=== PATIENT | male | born 1970 | race Caucasian/White ===

== ENCOUNTER 2017-02-03 12:23 | Emergency (ER) | payer OTHER ==
[~2017-02-03] VITALS: Ht 177.8 cm; Wt 106.0 kg
--- NOTE | 2017-02-03 12:30 | NUR ---
see trauma nsrg notes- pt is a level 2 trauma activation
--- OUTSIDE RECORDS SUMMARY | 2017-02-03 12:32 | XMS REPORT | Continuity of Care Document ---
[facility] [place] [facility] Address Unknown Phone Unavailable Allergies Medications Problems Date Dx Coded Attending Type Code Diagnosis Diagnosed By 04/07/2015 KIKO MANRIQUE APRN 300.01 PANIC DISORDER WITHOUT AGORAPHOBIA 04/07/2015 KIKO MANRIQUE APRN 300.01 PANIC DISORDER WITHOUT AGORAPHOBIA 04/07/2015 KIKO MANRIQUE APRN F41.0 PANIC DISORDER WITHOUT AGORAPHOBIA 04/07/2015 RANGEL NAVARRO, REY F41.0 PANIC DISORDER [EPISODIC PAROXYSMAL ANXIETY] WITHOUT AGORAPHOBIA 04/07/2015 RANGEL NAVARRO, REY F41.0 PANIC DISORDER [EPISODIC PAROXYSMAL ANXIETY] WITHOUT AGORAPHOBIA 04/07/2015 RANGEL NAVARRO, REY F41.0 PANIC DISORDER [EPISODIC PAROXYSMAL ANXIETY] WITHOUT AGORAPHOBIA 04/08/2015 KIKO MANRIQUE APRN 300.00 anxiety 04/08/2015 KIKO MANRIQUE APRN 311 depression 04/08/2015 KIKO MANRIQUE APRN 780.52 insomnia 04/08/2015 KIKO MANRIQUE APRN V65.49 OTHER SPECIFIED COUNSELING 04/08/2015 KIKO MANRIQUE APRN 300.00 anxiety 04/08/2015 KIKO MANRIQUE APRN 311 depression 04/08/2015 KIKO MANRIQUE APRN 780.52 insomnia 04/08/2015 KIKO MANRIQUE APRN F32.9 MAJOR DEPRESSIVE DISORDER, SINGLE EPISODE, UNSPECIFIED 04/08/2015 KIKO MANRIQUE APRN F41.9 ANXIETY DISORDER, UNSPECIFIED 04/08/2015 KIKO MANRIQUE APRN G47.00 INSOMNIA, UNSPECIFIED 04/08/2015 KIKO MANRIQUE APRN V65.49 OTHER SPECIFIED COUNSELING 04/08/2015 KIKO MANRIQUE APRN Z71.89 OTHER SPECIFIED COUNSELING 04/08/2015 REY MULTANI MD F32.9 MAJOR DEPRESSIVE DISORDER, SINGLE EPISODE, UNSPECIFIED 04/08/2015 RANGEL NAVARRO, REY F41.9 ANXIETY DISORDER, UNSPECIFIED 04/08/2015 RANGEL NAVARRO, REY G47.00 INSOMNIA, UNSPECIFIED 04/08/2015 RANGEL NAVARRO, REY Z71.89 OTHER SPECIFIED COUNSELING 04/08/2015 RANGEL NAVARRO, REY F32.9 MAJOR DEPRESSIVE DISORDER, SINGLE EPISODE, UNSPECIFIED 04/08/2015 RANGEL NAVARRO, REY F41.9 ANXIETY DISORDER, UNSPECIFIED 04/08/2015 RANGEL NAVARRO, REY G47.00 INSOMNIA, UNSPECIFIED 04/08/2015 RANGEL NAVARRO, REY Z71.89 OTHER SPECIFIED COUNSELING 04/08/2015 RANGEL NAVARRO, REY F32.9 MAJOR DEPRESSIVE DISORDER, SINGLE EPISODE, UNSPECIFIED 04/08/2015 RANGEL NAVARRO, REY F41.9 ANXIETY DISORDER, UNSPECIFIED 04/08/2015 RANGEL NAVARRO, REY G47.00 INSOMNIA, UNSPECIFIED 04/08/2015 RANGEL NAVARRO, REY Z71.89 OTHER SPECIFIED COUNSELING 05/06/2015 KIKO MANRIQUE APRN 272.4 HYPERLIPIDEMIA 05/06/2015 KIKO MANRIQUE APRN 716.90 ARTHRITIS 05/06/2015 KIKO MANRIQUE APRN E78.5 HYPERLIPIDEMIA, UNSPECIFIED 05/06/2015 KIKO MANRIQUE APRN M12.9 ARTHROPATHY, UNSPECIFIED 05/06/2015 KIKO MANRIQUE APRN V15.82 former smoker 05/06/2015 KIKO MANRIQUE APRN V68.1 ISSUE OF REPEAT PRESCRIPTIONS 05/06/2015 KIKO MANRIQUE APRN V70.0 ROUTINE GENERAL MEDICAL EXAMINATION AT A HEALTH CARE FACILITY 05/06/2015 KIKO MANRIQUE APRN V77.0 SPECIAL SCREENING FOR THYROID DISORDERS 05/06/2015 KIKO MANRIQUE APRN V77.1 SCREENING FOR DIABETES MELLITUS 05/06/2015 KIKO MANRIQUE APRN V77.91 SCREENING FOR LIPOID DISORDERS 05/06/2015 KIKO MANRIQUE APRN Z00.00 ENCNTR FOR GENERAL ADULT MEDICAL EXAM W/O ABNORMAL FINDINGS 05/06/2015 KIKO MANRIQUE APRN Z13.1 ENCOUNTER FOR SCREENING FOR DIABETES MELLITUS 05/06/2015 KIKO MANRIQUE APRN Z13.220 ENCOUNTER FOR SCREENING FOR LIPOID DISORDERS 05/06/2015 KIKO MANRIQUE APRN Z13.29 ENCOUNTER FOR SCREENING FOR OTH SUSPECTED ENDOCRINE DISORDER 05/06/2015 KIKO MANRIQUE APRN Z76.0 ENCOUNTER FOR ISSUE OF REPEAT PRESCRIPTION 05/06/2015 KIKO MANRIQUE APRN Z87.891 PERSONAL HISTORY OF NICOTINE DEPENDENCE 05/06/2015 RANGEL NAVARRO, REY E78.5 HYPERLIPIDEMIA, UNSPECIFIED 05/06/2015 RANGEL NAVARRO, REY M12.9 ARTHROPATHY, UNSPECIFIED 05/06/2015 REY MULTANI MD Z00.00 ENCNTR FOR GENERAL ADULT MEDICAL EXAM W /O ABNORMAL FINDINGS 05/06/2015 REY MULTANI MD Z13.1 ENCOUNTER FOR SCREENING FOR DIABETES MELLITUS 05/06/2015 REY MULTANI MD Z13.220 ENCOUNTER FOR SCREENING FOR LIPOID DISORDERS 05/06/2015 REY MULTANI MD Z13.29 ENCOUNTER FOR SCREENING FOR OTH SUSPECTED ENDOCRINE DISORDER 05/06/2015 REY MULTANI MD Z76.0 ENCOUNTER FOR ISSUE OF REPEAT PRESCRIPTION 05/06/2015 REY MULTANI MD Z87.891 PERSONAL HISTORY OF NICOTINE DEPENDENCE 05/06/2015 REY MULTANI MD E78.5 HYPERLIPIDEMIA, UNSPECIFIED 05/06/2015 RANGEL NAVARRO, REY M12.9 ARTHROPATHY, UNSPECIFIED 05/06/2015 REY MULTANI MD Z00.00 ENCNTR FOR GENERAL ADULT MEDICAL EXAM W /O ABNORMAL FINDINGS 05/06/2015 REY MULATNI MD Z13.1 ENCOUNTER FOR SCREENING FOR DIABETES MELLITUS 05/06/2015 REY MULTANI MD Z13.220 ENCOUNTER FOR SCREENING FOR LIPOID DISORDERS 05/06/2015 REY MULTANI MD Z13.29 ENCOUNTER FOR SCREENING FOR OTH SUSPECTED ENDOCRINE DISORDER 05/06/2015 REY MULTANI MD Z76.0 ENCOUNTER FOR ISSUE OF REPEAT PRESCRIPTION 05/06/2015 RANGEL NAVARRO, REY Z87.891 PERSONAL HISTORY OF NICOTINE DEPENDENCE 05/06/2015 RANGEL NAVARRO, REY E78.5 HYPERLIPIDEMIA, UNSPECIFIED 05/06/2015 RANGEL NAVARRO, REY M12.9 ARTHROPATHY, UNSPECIFIED 05/06/2015 RANGEL NAVARRO, REY Z00.00 ENCNTR FOR GENERAL ADULT MEDICAL EXAM W /O ABNORMAL FINDINGS 05/06/2015 RANGEL NAVARRO, REY Z13.1 ENCOUNTER FOR SCREENING FOR DIABETES MELLITUS 05/06/2015 RANGEL NAVARRO, REY Z13.220 ENCOUNTER FOR SCREENING FOR LIPOID DISORDERS 05/06/2015 RANGEL NAVARRO, REY Z13.29 ENCOUNTER FOR SCREENING FOR OTH SUSPECTED ENDOCRINE DISORDER 05/06/2015 RANGEL NAVARRO, REY Z76.0 ENCOUNTER FOR ISSUE OF REPEAT PRESCRIPTION 05/06/2015 RANGEL NAVARRO, ERY Z87.891 PERSONAL HISTORY OF NICOTINE DEPENDENCE 05/09/2015 KIKO MANRIQUE APRN M 268.9 VITAMIN D DEFICIENCY,unspecified 05/09/2015 KIKO MANRIQUE APRN E55.9 VITAMIN D DEFICIENCY, UNSPECIFIED 05/09/2015 RANGEL NAVARRO, REY E55.9 VITAMIN D DEFICIENCY, UNSPECIFIED 05/09/2015 RANGEL NAVARRO, REY E55.9 VITAMIN D DEFICIENCY, UNSPECIFIED 05/09/2015 RANGEL NAVARRO, REY E55.9 VITAMIN D DEFICIENCY, UNSPECIFIED 09/15/2015 RANGEL NAVARRO, REY F31.9 BIPOLAR DISORDER, UNSPECIFIED 09/15/2015 RANGEL NAVARRO, REY F43.10 POST-TRAUMATIC STRESS DISORDER, UNSPECIFIED 09/15/2015 RANGEL NAVARRO, REY F31.9 BIPOLAR DISORDER, UNSPECIFIED 09/15/2015 RANGEL NAVARRO, REY F43.10 POST-TRAUMATIC STRESS DISORDER, UNSPECIFIED 09/15/2015 RANGEL NAVARRO, REY F31.9 BIPOLAR DISORDER, UNSPECIFIED 09/15/2015 RANGEL NAVARRO, REY F43.10 POST-TRAUMATIC STRESS DISORDER, UNSPECIFIED Procedures Code Description [place] [address] [facility] 2014 24383 SPECIMEN HANDLING OFFICE-LAB 04/08/2015 75852 COMPREHENSIVE METABOLIC PANEL (Inhouse) 05/06/2015 44087 LIPID PANEL (Inhouse) 05/06/2015 77036 HEMOGLOBIN A1C (Inhouse) 05/06/2015 36387 URINE DIPSTICK (Inhouse) 05/06/2015 06966 COLLECTION, VENOUS BLOOD, VENIPUNCTURE 05/06/2015 72897 CHEST X-RAY 2VW FRONTAL&LATL 05/06/2015 18358 COMPREHENSIVE METABOLIC PANEL (Inhouse) 05/06/2015 52589 LIPID PANEL (Inhouse) 05/06/2015 04941 URINE DIPSTICK (Inhouse) 05/06/2015 96033 VITAMIN D ASSAY 05/06/2015 38704 HEMOGLOBIN A1C (Inhouse) 05/06/2015 47217 TSH. 05/06/2015 14826 CBC WITH DIFFERENTIAL 05/06/2015 80053 RBC SED RATE, AUTO (ESR) 05/06/2015 94672 RHEUMATOID FACTOR, QUANT 05/06/2015 88679 PSYTX PT&/FAMILY 60 MINUTES 05/06/2015 86140 ELECTROCARDIOGRAM, ROUTINE W/AT LEAST 12 LEADS 05/06/2015 89608 COLLECTION, VENOUS BLOOD, VENIPUNCTURE 05/06/2015 99022 CHEST X-RAY 2VW FRONTAL&LATL 05/06/2015 04186 VITAMIN D ASSAY 05/06/2015 32713 TSH. 05/06/2015 41378 CBC WITH DIFFERENTIAL 05/06/2015 48275 RBC SED RATE, AUTO (ESR) 05/06/2015 82199 RHEUMATOID FACTOR, QUANT 05/06/2015 71367 ELECTROCARDIOGRAM, ROUTINE W/AT LEAST 12 LEADS 05/06/2015 16212 PSYCH DIAGNOSTIC EVALUATION 09/15/2015 00399 PSYTX PT AND/OR FAMILY 30 MINUTES 10/18/2015 65078 PSYTX PT AND/OR FAMILY 30 MINUTES 12/13/2015 Results Encounters ACCT No. Visit Date/Time Discharge Status Pt. Type Provider Facility Loc./Unit Complaint [id number] 04/08/2015 09:28:00 04/08/2015 23: 59:59 CLS Outpatient KIKO MANRIQUE APRN [id number] 12/13/2015 16:14:00 ACT Outpatient RANGEL NAVARRO, REY [id number] 10/18/2015 16:22:00 ACT Outpatient RANGEL NAVARRO, REY [id number] 09/15/2015 16:15:00 DIS Outpatient RANGEL NAVARRO, REY [id number] 05/06/2015 08:44:00 DIS Outpatient KIKO MANRIQUE APRN
--- NOTE | 2017-02-03 12:33 | NUR ---
notified MD of patient arrival
[2017-02-03] MEDS ORDERED: fentaNYL 100 MCG/2 ML VIAL IV ONE (12:45)
[2017-02-03] MEDS ORDERED: ONDANSETRON 2 MG/ML (Z0FRAN) 2 ML VIAL IV ONE (12:45)
[2017-02-03] MEDS ORDERED: NS IV 500 ML 500 ML IV SCH (12:45)
[2017-02-03 12:48] VITALS: RESP 22
--- NOTE | 2017-02-03 12:48 | NUR ---
pt c/o right clavical pain
[2017-02-03] MEDS ORDERED: SODIUM CHLORIDE FLUSH 3 ML SYR IV PRN (13:05)
[2017-02-03] MEDS ORDERED: SODIUM CHLORIDE FLUSH 10 ML SYR IV PRN (13:05)
[2017-02-03] MEDS ORDERED: CTLP20T PO (13:16)
[2017-02-03] MEDS ORDERED: BPR100T PO (13:16)
[2017-02-03] MEDS ORDERED: ALPR1TAB7 PO (13:16)
[2017-02-03 13:18] LABS: MEAN PLATELET VOLUME 9.5 FL (6.0-9.5); WHITE BLOOD COUNT 10.43 10^3uL (4.0-11.0)
[2017-02-03 13:24] LABS: ALBUMIN 4.5 g/dL (3.4-5.0); ANION GAP 22.4 MEQ/L (3-15); CALCULATED IONIZED CALCIUM 3.7 mg/dL (3.8-4.6); MEAN CORPUSCULAR HEMOGLOBIN 33.4 PG (26.0-34.0); MEAN CORPUSCULAR HGB CONC 36.2 g/dL (31.0-37.0); TOTAL PROTEIN 8.4 g/dL (6.4-8.5)
--- NOTE | 2017-02-03 13:30 | NUR ---
PT BACK TO RM. FRIEND AT BEDSIDE- PT PLACED ON PIGMENT PUMPER. PT REPORTS FEELING BETTER AFTER ANALGESIC NOW RATES PAIN /10.
--- NOTE | 2017-02-03 13:44 | Diagnostic Imaging Report ---
PROCEDURE: CT head and CT cervical spine without contrast. TECHNIQUE: Multiple contiguous axial images were obtained through the brain and cervical spine without the use of intravenous contrast. Sagittal and coronal reformations through the cervical spine were then performed. INDICATION: Head and neck pain after fall from ladder. COMPARISON: None available. FINDINGS: Head: No hyperdense mass or space-occupying mass. No hydrocephalus or midline shift. No evidence of territorial infarct. Basilar cisterns are patent. No focal scalp swelling. No skull fracture. The paranasal sinuses and mastoid air cells are clear. Cervical spine: No acute fracture or traumatic malalignment. Intervertebral disc spaces are normal. Airway is patent. No cervical lymphadenopathy. Visualized thyroid is normal. Lung apices are clear. IMPRESSION: 1. No acute intracranial process. 2. No acute fracture or traumatic malalignment of the cervical spine. Dictated by: Dictated on workstation # [id number]
--- NOTE | 2017-02-03 13:53 | Diagnostic Imaging Report ---
INDICATION: Right clavicular pain following a fall. Medial middle and distal thirds of the clavicle appeared intact. The acromioclavicular and coracoclavicular joint spaces appeared intact. The glenohumeral joint revealed no apparent fracture. The visualized adjacent ribs and pleura unremarkable. IMPRESSION: Unremarkable right clavicular radiographs. Dictated by: Dictated on workstation # [id number]
--- NOTE | 2017-02-03 13:54 | Diagnostic Imaging Report ---
Indication: Left anterior rib pain after fall from ladder. Comparison: None available. Technique: PA chest with 4 views of left ribs. Findings: No pleural effusion or pneumothorax. No evidence of pulmonary laceration or contusion. No acute rib fracture on the left. Impression: 1. No pneumothorax. 2. No discrete rib fracture. Dictated by: Dictated on workstation # [id number]
--- NOTE | 2017-02-03 14:04 | NUR ---
Requested UA- pt unable to void at this time. Calllight within reach.
--- NOTE | 2017-02-03 14:25 | NUR ---
cleared neck and removed c-collar.
--- NOTE | 2017-02-03 14:28 | NUR ---
Obtained UA- labeled and sent
[2017-02-03 14:43] LABS: BILIRUBIN,URINE Negative (Negative); CLARITY,URINE Clear; COLOR,URINE Yellow; GLUCOSE, URINE (UA) Negative (Negative); LEUKOCYTE ESTERASE ,URINE Negative (Negative); UROBILINOGEN,URINE 0.2 mg/dL (0.2-1.0)
[2017-02-03 14:46] LABS: URINE CENTRIFUGED VOLUME 12 mL
[2017-02-03] MEDS ORDERED: CHLO500T2 PO (15:02)
[2017-02-03] MEDS ORDERED: HYDR-3702 PO (15:02)
[2017-02-03 15:21] VITALS: BP 145/80
== END 2017-02-03 15:00 | disposition home or self-care (01) ==
LOC: ED 12:27
DX: S20.212A Contusion of left front wall of thorax, initial encounter (principal); S40.011A Contusion of right shoulder, initial encounter; S10.93XA Contusion of unspecified part of neck, initial encounter; W11.XXXA Fall on and from ladder, initial encounter
CPT/HCPCS: 36415; 70450; 71101; 72125; 73000; 80053; 80320; 81003; 81015; 85027; 85610; 85730; 96361; 96374; 96375; 99283; J2405; J3010; J7040